=== PATIENT | female | born 1960 | race Caucasian/White ===

== ENCOUNTER 2017-05-11 15:56 | Outpatient (CLI) | payer OTHER ==
--- NOTE | 2017-05-11 20:24 | RAD ---
RIGHT RIBS TWO VIEW 05/11/17 HISTORY: Rib pain. COMPARISON: None. FINDINGS: No displaced fracture of the ribs. No significant effusion. The cardiac silhouette is unremarkable. IMPRESSION: No displaced rib fracture. POS: [facility]
== END 2017-05-11 15:57 | disposition home or self-care (01) ==
LOC: NAV RAD 15:56
PROVIDERS: ATTEND Family Medicine
DX: R07.81 Pleurodynia (principal)

== ENCOUNTER 2018-07-12 14:59 | Outpatient (CLI) | payer OTHER ==
--- NOTE | 2018-07-12 18:01 | RAD ---
CHEST PA AND LATERAL: 07/12/18 HISTORY: 57-year-old female with history of COPD. Heart size is within normal limits. There is some bilateral hyperinflation and chronic lung changes. No confluent pneumonia, overt edema, or pleural effusions. IMPRESSION: Hyperinflation and chronic lung changes. Atherosclerosis of the aorta. No significant acute intrathor acic disease. POS: [facility]
== END 2018-07-12 15:00 | disposition home or self-care (01) ==
LOC: NAV RAD 14:59
PROVIDERS: ATTEND Family Medicine
DX: J44.1 Chronic obstructive pulmonary disease with (acute) exacerbation (principal); I70.0 Atherosclerosis of aorta; R91.8 Other nonspecific abnormal finding of lung field
CPT/HCPCS: 71046